=== PATIENT | female | born 1990 | race Caucasian/White ===

== ENCOUNTER 2023-02-18 16:02 | Outpatient (AMB) | payer OTHER, SELFPAY ==
[2023-02-18 16:19] VITALS: BP 132/82; PULSE 68; TEMP 37.1; O2SAT 96
--- NOTE | 2023-02-18 16:19 | MHC.OFFWIV ---
Intake Vital Signs 02/18/23 16:19 Height 5 ft 3 in BP 132/82 Blood Pressure Location Rt brachial Position Sitting Pulse 68 Pulse Source Pulse Oximeter Temp 98.7 F Temp Source Oral Pulse Oximetry (%) 96 Oxygen Delivery Method Room Air Intake Visit Reasons: EP Lump LT side neck/Rash Intake Note: Pt is here today for lump on Lt side of neck, also has a rash on chest. Pt states that chest itches and it goes up to ears ad back of neck. Patient Tobacco Use Status: Never used Tobacco Allergies No Known Allergies Allergy (Verified 02/19/23 05:57) Medication List - Last Reconciled 02/19/23 by Best Guerrier MD prednisone 40 mg (2 x 20 mg) PO DAILY Do you need a note to return to daycare/school/sports/work: No HPI EP Lump LT side neck/Rash HPI Details He 32-year-old female presents to the office for a sick visit. Patient reports that she is having a rash just about her breasts for the past week he she was out in the beach 2 weeks ago. She describes the rash is very itchy. She is also complaining of itchiness behind the years and back of the neck. In addition she has noticed a swelling on the left side of the neck and is requesting evaluation. No weight loss. She recently had discomfort in the mouth area which is now resolved. [facility] Social History Housing: House Patient Tobacco Use Status: Never used Tobacco e-Cigarette/Vaping Use: Never Used Second Hand Smoke Exposure: No service: No Current occupational status: employed Current occupation: [employer] Current occupational exposures/hazards: Yes Cognitive needs: No Hearing needs: No Vision needs: No Physical Exam Vital Signs: Last Vital Signs Temp 98.7 F 02/18/23 16:19 Pulse 68 02/18/23 16:19 BP 132/82 02/18/23 16:19 Pulse Ox 96 02/18/23 16:19 Oxygen Delivery Method Room Air 02/18/23 16:19 Const General: cooperative and healthy appearing Nutritional Appearance: well nourished Orientation/consciousness: patient oriented x3 Limitations: no limitations HEENT Head: Yes normal to inspection Eyes General: appearance normal, both eyes and all related structures Neck Other: Solitary lymph node palpable posterior to the left sternocleidomastoid in the middle of the muscle region. Lymph node is nontender. Neck: Yes normal visual inspection Chest Chest palpation & inspection: normal palpation of entire chest wall Resp Effort & Inspection: normal respiratory effort Skin Other: Examination of the chest done in the presence of a female medical psychotherapist. Wheals, erythematous area over the chest with fine erythematous area in the back of the ears. No vesicles or pustules. Neuro General: patient oriented x3 Assessment & Plan Assessment & Plan (1) Rash: Code(s): R21 - Rash and other nonspecific skin eruption Plan: Most likely a heat rash. Trial of prednisone. If symptoms do not improve to follow-up here. (2) Cervical adenopathy: Code(s): R59.0 - Localized enlarged lymph nodes Plan: Single solitary lymph node palpable. Close follow-up is necessary. If lymph node does not decrease in size in a week or so, patient was advised to follow-up here or with her primary care provider. Medications: New prednisone 40 mg (2 x 20 mg) PO DAILY 6 tabs 0RF Coding Level of Care Code Est Pt Level 4 (58295) Diagnoses Rash R21 Cervical adenopathy R59.0
== END 2023-02-18 17:02 | disposition home or self-care (01) ==
PROVIDERS: PCP Nurse Practitioner Family; Visit Provider Internal Medicine
DX: R21 Rash and other nonspecific skin eruption (principal); R59.0 Localized enlarged lymph nodes
CPT/HCPCS: 99214

== ENCOUNTER 2023-02-25 09:28 | Outpatient (AMB) | payer OTHER, SELFPAY ==
--- NOTE | 2023-02-25 11:25 | AM.OFFWIN_ITS ---
Intake Vital Signs 02/25/23 11:27 Height 5 ft 3 in Weight 173 lb BMI 30.6 BP 130/70 Blood Pressure Location Rt brachial Position Sitting Pulse 98 Pulse Source Pulse Oximeter Temp 97 F Temp Source Temporal Artery Scan Pulse Oximetry (%) 100 Oxygen Delivery Method Room Air Intake Visit Reasons: EP weak joints, rash on chest [phone] Intake Note: Pt is here c/o rash on her chest. Pt states she was seen in the walk in and prescribed prednisone and is now experiencing weak joints and body aches. Patient Tobacco Use Status: Never used Tobacco Allergies No Known Allergies Allergy (Verified 02/26/23 05:40) Medication List - Last Reconciled 02/26/23 by Best Guerrier MD No Known Home Meds Do you need a note to return to daycare/school/sports/work: No HPI EP weak joints, rash on chest [phone] HPI Details 32-year-old female presents to the office for a sick visit. Patient was seen last week for a rash. She reports that the prednisone has not helped her. In addition she believes she could have injured her right wrist at work while trying to close a door. She is also complaining of pain in the left wrist and over the ankles. Also complaining of generalized aches and fatigue. [facility] Social History Housing: House Patient Tobacco Use Status: Never used Tobacco e-Cigarette/Vaping Use: Never Used Second Hand Smoke Exposure: No service: No Current occupational status: employed Current occupation: [employer] Current occupational exposures/hazards: Yes Cognitive needs: No Hearing needs: No Vision needs: No Physical Exam Vital Signs: Last Vital Signs Temp 97 F 02/25/23 11:27 Pulse 98 02/25/23 11:27 BP 130/70 02/25/23 11:27 Pulse Ox 100 02/25/23 11:27 Oxygen Delivery Method Room Air 02/25/23 11:27 BMI result Body Mass Index 30.6 Skin Other: Erythematous area over the chest, wheals present. Extrem Other: Right wrist: Minimal tenderness on flexing the wrist. Full extension. Full range of motion. Assessment & Plan Assessment & Plan (1) Contusion of right wrist: Code(s): S60.211A - Contusion of right wrist, initial encounter Plan: X-ray of the chest was personally reviewed by me. No fractures seen. Patient was reassured. (2) Wrist pain: Code(s): M25.539 - Pain in unspecified wrist (3) Rash: Code(s): R21 - Rash and other nonspecific skin eruption Plan: Blood work has been ordered. Will call with results of blood work. Patient has an appointment with her primary care for the next day. I encouraged her to keep the appointment. Orders: Orders XR wrist RT min 3V 02/25/23 S60.211A - Contusion of right wrist, initial encounter Basic Metabolic Panel 02/25/23 M25.539 - Pain in unspecified wrist Liver Panel 02/25/23 M25.539 - Pain in unspecified wrist Thyroid Stimulating Hormone 02/25/23 M25.539 - Pain in unspecified wrist Complete Blood Count no Diff 02/25/23 M25.539 - Pain in unspecified wrist Erythrocyte Sedimentation Rate 02/25/23 M25.539 - Pain in unspecified wrist Coding Level of Care Code Est Pt Level 4 (16039) Diagnoses Contusion of right wrist S60.211A Wrist pain M25.539 Rash R21
[2023-02-25 11:27] VITALS: BP 130/70; PULSE 98; TEMP 36.1; O2SAT 100; BMI 30.6
== END 2023-02-25 13:55 | disposition home or self-care (01) ==
PROVIDERS: PCP Nurse Practitioner Family; Visit Provider Internal Medicine
DX: S60.211A Contusion of right wrist, initial encounter (principal); M25.539 Pain in unspecified wrist; R21 Rash and other nonspecific skin eruption
CPT/HCPCS: 99214

== ENCOUNTER 2023-02-25 11:58 | Outpatient (REF) | payer OTHER, SELFPAY ==
--- NOTE | ~2023-02-25 | XR_ITS ---
EXAMINATION: XR WRIST, RIGHT CLINICAL INFORMATION: Right wrist contusion. COMPARISON: None available. TECHNIQUE: PA, lateral, scaphoid and oblique views of the right wrist. FINDINGS: The bones and soft tissues are normal. No fracture. Alignment is anatomic with normal joint spaces. No erosions or abnormal soft tissue calcifications. XR/XR wrist RT min 3V IMPRESSION: Unremarkable right wrist.
[2023-02-25 16:13] LABS: Appearance Urine Clear; Color Urine Yellow; Glucose Urine UA Negative (Negative); Leukocyte Esterase Urine Negative (Negative); Nitrite Urine Negative (Negative); PH 6.5 (5.0-9.0); UMIC TRIGGER UACC YES; Urine Blood Moderate (2+) (Negative); Urine Ketones Negative (Negative); Urine Protein Negative (Neg-Trace)
[2023-02-25 16:14] LABS: MANUAL DIFF FLAG NO
[2023-02-25 16:15] LABS: Eosinophils Absolute Auto 0.1 X10*3/uL (0.0-0.4); Eosinophils Percent Auto 1.8 % (0-4); Hematocrit 40.6 % (37.0-47.0); Hemoglobin 13.3 g/dl (12.0-16.0); Imm Gran Abs Auto 0.01 X10*3/uL (0.00-0.03); Imm Gran Pct Auto 0.3 % (0.0-0.4); Lymphocytes Absolute Auto 0.8 X10*3/uL (1.2-4.9); Lymphocytes Percent Auto 20.2 % (20-40); Mean Corpuscular HGB Conc 32.8 g/dl (31.0-35.0); Mean Corpuscular Hemoglobin 27.8 pg (27.0-33.0); Mean Corpuscular Volume 84.9 fL (80.0-98.0); Mean Platelet Volume 12.6 fL (9.4-12.3); Monocytes Absolute Auto 0.5 X10*3/uL (0.1-1.2); Monocytes Percent Auto 12.2 % (2-11); Neutrophils Absolute Auto 2.6 x10*3/uL (2.0-8.3); Neutrophils Percent Auto 65.5 % (45-73); Platelet Count 170 X10*3/uL (160-400); Red Blood Count 4.78 X10*6/uL (4.20-5.50); Red Cell Distribution Width 13.2 % (11.0-16.0); White Blood Count 3.9 X10*3/uL (4.8-10.8)
[2023-02-25 16:30] LABS: Bacteria Urine None Seen (None Seen); Hyaline Casts Urine 0-2 /LPF (0-2); Squamous Epithelial Cell Urine 0-2 /HPF (0-2); WBC Urine 0-5 /HPF (0-5)
[2023-02-26 02:29] LABS: Alanine Aminotransferase 35 U/L (0-31); Alkaline Phosphatase 59 U/L (39-117); Anion Gap 11 (12-20); Aspartate Amino Transferase 25 U/L (5-31); Bilirubin Total 0.4 mg/dL (0.0-1.0); Blood Urea Nitrogen 10 mg/dL (9-16); Carbon Dioxide 24 mmol/L (22-29); Chloride 108 mmol/L (96-108); Cholesterol 145 mg/dL; Estimated Glomerular Filt Rate > 60; Glucose Fasting 115 mg/dL (60-99); HDL Cholesterol 36 mg/dL; LDL Cholesterol Calculated 71 mg/dl; Potassium 4.1 mmol/L (3.3-5.1); Sodium 139 mmol/L (135-145); TSH reflex Free T4 0.98 uIU/mL (0.32-4.0); Total Protein 7.3 g/dL (6.5-8.0); Triglycerides 192 mg/dL
== END 2023-02-25 11:59 | disposition home or self-care (01) ==
LOC: HO.HMGCX 11:58
PROVIDERS: PCP Nurse Practitioner Family; Visit Provider Internal Medicine
DX: S60.211A Contusion of right wrist, initial encounter (principal); Z00.00 Encounter for general adult medical examination without abnormal findings; Z13.29 Encounter for screening for other suspected endocrine disorder; Z13.220 Encounter for screening for lipoid disorders
CPT/HCPCS: 36415; 73110; 80053; 80061; 81001; 84443; 85025

== ENCOUNTER 2023-02-26 08:03 | Outpatient (AMB) | payer OTHER, SELFPAY ==
[2023-02-26 08:06] VITALS: BP 128/82; PULSE 67; O2SAT 98; BMI 31.2
--- NOTE | 2023-02-26 08:06 | A.OFFPC_ITS ---
Vital Signs 02/26/23 08:06 Height 5 ft 3 in Weight 176 lb 4 oz BMI 31.2 BP 128/82 Blood Pressure Location Lt brachial Position Sitting Pulse 67 Pulse Source Pulse Oximeter Pulse Oximetry (%) 98 Oxygen Delivery Method Room Air Intake Visit Reasons: joint pain Intake Note: pt has been having joint since Thurs in her wrist and her left knee and in her Big toes and pt injured her right wrist at work Allergies No Known Allergies Allergy (Verified 02/26/23 05:40) Medication List - Last Reconciled 02/26/23 by Ayan Toro [facility] meloxicam 15 mg PO DAILY PRN 30 days Tobacco use date assessed: 03/28/22 HPI joint pain HPI Details Pt c/o joint pain (generalized). She reports pain in her left wrist, left knee, and big toes. Pt reports that this worsened after being on prednisone. Will order labs. Denies fever, chills, and dizziness. [facility] Social History Housing: House Patient Tobacco Use Status: Never used Tobacco e-Cigarette/Vaping Use: Never Used Second Hand Smoke Exposure: No service: No Current occupational status: employed Current occupation: [employer] Current occupational exposures/hazards: Yes Cognitive needs: No Hearing needs: No Vision needs: No Questionnaire Thrive Questionnaire Date Thrive assessed: 03/28/22 JACK-7 AMB Questionnaire JACK-7 Date JACK - 7 assessed: 03/28/22 Source: Developed by Drs. Justice Diaz, Laurel Salazar, Camden Ramírez and colleagues, with an educational nino from [employer]. Review of Systems Const Reports as per HPI Physical exam (Primary Care) Vital Signs: Last Vital Signs Pulse 67 02/26/23 08:06 BP 128/82 02/26/23 08:06 Pulse Ox 98 02/26/23 08:06 Oxygen Delivery Method Room Air 02/26/23 08:06 BMI result Body Mass Index 31.2 Tobacco/Smoking Status: Tobacco use Status Tobacco use date assessed 03/28/22 02/26/23 08:12 Patient Tobacco Use Status Never used Tobacco 02/26/23 08:12 e-Cigarette/Vaping Use Never Used 02/26/23 08:12 Thrive Assessment: Date of Thrive Assessment Date Thrive assessed 03/28/22 02/26/23 08:12 Const General: cooperative Orientation/consciousness: patient oriented x3 Resp Effort & Inspection: normal respiratory effort Auscultation: clear to auscultation bilaterally Cardio Rate: regular rate Rhythm: regular rhythm Heart sounds: S1 normal heart sound present and S2 normal heart sound present Neuro General: patient oriented x3 Extrem Other: with dorsi flexion of toes tenderness noted to 1st MTP joints bilat, no erythema, no swelling, with ulnar and radial deviation and wrist flexion and extension against resistance slight dull pain to left wrist, able to flex and extend left knee without discomfort Psych Appearance: grossly normal Mental Status: mental status grossly normal Speech and movement: Normal speech and movement present Affect: normal affect Attitude: cooperative Thought process: Normal thought process present Thought content: Normal thought content present Insight: Good insight present (Psych) Judgement: Good judgement present (Psych) Assessment and Plan Assessment & Plan (1) Joint pain: Code(s): M25.50 - Pain in unspecified joint Plan: Labs ordered Plan The patient agreed to the use of a medical imaging technician for this encounter. Scribed for TAMI Delgado by Talia Romero medical imaging technician, on 02/26/2023 at 08:35 EST. Orders: Orders Cyclic Citrullinated Peptide Today M25.50 - Pain in unspecified joint C Reactive Protein Today M25.50 - Pain in unspecified joint Rheumatoid Factor Today M25.50 - Pain in unspecified joint Complete Blood Count Auto Diff Today M25.50 - Pain in unspecified joint Erythrocyte Sedimentation Rate Today M25.50 - Pain in unspecified joint ROGERS Reflex Titer and Pattern Today M25.50 - Pain in unspecified joint DNA Double Stranded-Crithidia Today M25.50 - Pain in unspecified joint Sjogren's Antibodies Today M25.50 - Pain in unspecified joint Tick-borne Disease Molecular Today M25.50 - Pain in unspecified joint Uric Acid Today M25.50 - Pain in unspecified joint Medications: New meloxicam 15 mg PO DAILY PRN 30 tabs 0RF pain 30 days Coding Level of Care Code Est Pt Level 3 (15833) Diagnoses Joint pain M25.50
== END 2023-02-26 10:38 | disposition home or self-care (01) ==
PROVIDERS: PCP Nurse Practitioner Family; Visit Provider Nurse Practitioner Family
DX: M25.561 Pain in right knee (principal); M79.671 Pain in right foot; M79.672 Pain in left foot
CPT/HCPCS: 99213

== ENCOUNTER 2023-02-26 08:25 | Outpatient (AMB) | payer OTHER, SELFPAY ==
--- NOTE | 2023-02-26 08:25 | A.OFFPC_ITS ---
Intake Visit Reasons: WC RT Wrist Allergies No Known Allergies Allergy (Verified 02/26/23 05:40) Tobacco use date assessed: 03/28/22 HPI WC RT Wrist HPI Details WC: Pt c/o ongoing right wrist pain. She was going to open a door at work on 02/22 and hyperextended her wrist after another individual on the other side of the door opened the door fairly quickly. Pt used her hand to block the door swinging at her. Pt was seen in the walk-in for this yesterday and had an xr which was negative. Most likely a severe sprain. Recommended wearing a wrist brace during the day. Will keep pt out of work until Saturday 03/10. SHe kows to contact me with further questions or concerns. [facility] Social History Housing: House Patient Tobacco Use Status: Never used Tobacco e-Cigarette/Vaping Use: Never Used Second Hand Smoke Exposure: No service: No Current occupational status: employed Current occupation: [employer] Current occupational exposures/hazards: Yes Cognitive needs: No Hearing needs: No Vision needs: No Questionnaire Thrive Questionnaire Date Thrive assessed: 03/28/22 JACK-7 AMB Questionnaire JACK-7 Date JACK - 7 assessed: 03/28/22 Source: Developed by Drs. Justice Diaz, Laurel Salazar, Camden Ramírez and colleagues, with an educational nino from [employer]. Review of Systems Const Reports as per HPI Physical exam (Primary Care) Tobacco/Smoking Status: Tobacco use Status Tobacco use date assessed 03/28/22 02/26/23 08:30 Patient Tobacco Use Status Never used Tobacco 02/26/23 08:30 e-Cigarette/Vaping Use Never Used 02/26/23 08:30 Thrive Assessment: Date of Thrive Assessment Date Thrive assessed 03/28/22 02/26/23 08:30 Const General: cooperative Orientation/consciousness: patient oriented x3 Neuro General: patient oriented x3 Extrem Other: right wrist: tenderness noted with ulnar and radial deviation, able to extend wrist against resistance with discomfort, more discomfort with wrist flexion against resistance, no active swelling Psych Appearance: grossly normal Mental Status: mental status grossly normal Speech and movement: Normal speech and movement present Affect: normal affect Attitude: cooperative Thought process: Normal thought process present Thought content: Normal thought content present Insight: Good insight present (Psych) Judgement: Good judgement present (Psych) Assessment and Plan Assessment & Plan (1) Wrist pain: Comment: right wrist pain, instructed on wearing a brace throughout the day. Code(s): M25.539 - Pain in unspecified wrist Plan The patient agreed to the use of a vice president medical affairs for this encounter. Scribed for FELIZ Delgado-SHAWN by Talia Romero vice president medical affairs, on 02/26/2023 at 08:20 EST. Coding Level of Care Code Est Pt Level 3 (60177) Diagnoses Wrist pain M25.539
== END 2023-02-26 10:40 | disposition home or self-care (01) ==
PROVIDERS: PCP Nurse Practitioner Family; Visit Provider Nurse Practitioner Family
DX: M25.531 Pain in right wrist (principal); X50.3XXA Overexertion from repetitive movements, initial encounter
CPT/HCPCS: 99213

== ENCOUNTER 2023-02-26 08:57 | Outpatient (REF) | payer OTHER, SELFPAY ==
[2023-02-26 11:23] LABS: Basophils Percent Auto 0.3 % (0-2); Eosinophils Percent Auto 1.3 % (0-4); Hematocrit 42.9 % (37.0-47.0); Hemoglobin 13.8 g/dl (12.0-16.0); Imm Gran Abs Auto 0.02 X10*3/uL (0.00-0.03); Imm Gran Pct Auto 0.7 % (0.0-0.4); Lymphocytes Absolute Auto 0.9 X10*3/uL (1.2-4.9); Lymphocytes Percent Auto 29.5 % (20-40); MANUAL DIFF FLAG NO; Mean Corpuscular HGB Conc 32.2 g/dl (31.0-35.0); Mean Corpuscular Hemoglobin 27.5 pg (27.0-33.0); Mean Corpuscular Volume 85.5 fL (80.0-98.0); Mean Platelet Volume 12.6 fL (9.4-12.3); Monocytes Absolute Auto 0.4 X10*3/uL (0.1-1.2); Monocytes Percent Auto 14.8 % (2-11); Neutrophils Absolute Auto 1.6 x10*3/uL (2.0-8.3); Neutrophils Percent Auto 53.4 % (45-73); Platelet Count 181 X10*3/uL (160-400); Red Blood Count 5.02 X10*6/uL (4.20-5.50); Red Cell Distribution Width 13.2 % (11.0-16.0)
[2023-02-26 12:08] LABS: Erythrocyte Sedimentation Rate 5 MM/HR (0-20)
[2023-02-26 12:09] LABS: C Reactive Protein 0.37 mg/dL (< or = 0.50); Uric Acid 4.3 mg/dL (2.4-5.7)
[2023-02-26 14:00] LABS: Rheumatoid Factor < 13.0 IU/mL (<15.0)
[2023-02-27 14:34] LABS: Cyclic Citrullinated Peptide <16 UNITS
[2023-02-27 20:34] LABS: Antibody to SS-A Antigen <1.0 NEG AI (<1.0 NEG); Antibody to SS-B Antigen <1.0 NEG AI (<1.0 NEG)
[2023-02-28 06:13] LABS: A. Phagocytphilium DNA,RT-PCR NOT DETECTED (NOT DETECTED); Babesia Microti DNA, RT-PCR NOT DETECTED (NOT DETECTED); Borrelia Miyamotoi,DNA RT-PCR NOT DETECTED (NOT DETECTED); E.Chaffeensis DNA RT-PCR NOT DETECTED (NOT DETECTED); Lyme(Borrelia ssp)DNA RT-PCR NOT DETECTED (NOT DETECTED)
[2023-03-01 13:29] LABS: Anti Nuclear Antibody Screen NEGATIVE (NEGATIVE)
[2023-03-03 14:38] LABS: DNAds, Crithidia Antibody Negative (Negative)
== END 2023-02-26 08:58 | disposition home or self-care (01) ==
LOC: HO.HMGCLDS 08:57
PROVIDERS: PCP Nurse Practitioner Family; Visit Provider Nurse Practitioner Family
DX: M25.50 Pain in unspecified joint (principal)
CPT/HCPCS: 36415; 84550; 85025; 85652; 86038; 86140; 86200; 86235; 86255; 86431; 87798; 87801

== ENCOUNTER 2023-04-25 11:16 | Outpatient (AMB) | payer OTHER, SELFPAY ==
[2023-04-25 11:20] VITALS: BP 126/84; PULSE 91; O2SAT 96; BMI 30.7
--- NOTE | 2023-04-25 11:20 | A.OFFPC_ITS ---
Vital Signs 04/25/23 11:20 Height 5 ft 3 in Weight 173 lb 4 oz BMI 30.7 BP 126/84 Blood Pressure Location Lt brachial Position Sitting Pulse 91 Pulse Source Pulse Oximeter Pulse Oximetry (%) 96 Oxygen Delivery Method Room Air Intake Visit Reasons: Annual PE Allergies No Known Allergies Allergy (Verified 04/25/23 11:31) Tobacco use date assessed: 04/25/23 Dental Screening Dental Screen Date: 04/25/23 Did you have a dental visit in the last 12 months?: Yes Did you have a dental problem in the last 6 months where you did not have access to dental care?: No Was dental information given to patient?: Patient has dentist HPI Annual PE HPI Details Pt is here for a PE. Labs have already been ordered. 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 Pt is following up with [place] [facility] due to an ongoing dermatitis of her bilat hands. She is seeing rheumatology as well. Pt c/o cough, post-nasal drip, and hoarse voice x 2 weeks. Will swab for COVID/flu/RSV. Denies fever, chills, and sore throat. [facility] Social History Housing: House Patient Tobacco Use Status: Never used Tobacco e-Cigarette/Vaping Use: Never Used Second Hand Smoke Exposure: No service: No Current occupational status: employed Current occupation: [employer] Current occupational exposures/hazards: Yes Cognitive needs: No Hearing needs: No Vision needs: No Questionnaire Thrive Questionnaire Date Thrive assessed: 03/28/22 JACK-7 AMB Questionnaire JACK-7 Date JACK - 7 assessed: 03/28/22 Source: Developed by Drs. Justice Diaz, Laurel Salazar, Camden Ramírez and colleagues, with an educational nino from [employer]. Review of Systems Const Denies chills and Denies fever(s) Eyes Denies blurry vision ENT Denies vertigo, Denies dizziness and Denies sore throat Card Denies chest pain at rest, Denies chest pain with activity, Denies diaphoresis, Denies dyspnea and Denies dyspnea on exertion Resp Reports cough, Denies dyspnea, Denies dyspnea on exertion and Denies wheezing GI Denies abdominal pain, Denies melena, Denies hematochezia, Denies constipation, Denies diarrhea and Denies loose stools Denies hematuria Musc Denies numbness and Denies tingling Skin/Breast Denies lesions Neuro Denies vertigo, Denies dizziness, Denies numbness and Denies tingling Psych Denies anxiety, Denies depression, Denies homicidal ideation, Denies suicidal ideation and Denies other (substance abuse) Aller/Immun Denies wheezing Physical exam (Primary Care) Vital Signs: Last Vital Signs Pulse 91 04/25/23 11:20 BP 126/84 04/25/23 11:20 Pulse Ox 96 04/25/23 11:20 Oxygen Delivery Method Room Air 04/25/23 11:20 BMI result Body Mass Index 30.7 Tobacco/Smoking Status: Tobacco use Status Tobacco use date assessed 04/25/23 04/25/23 11:33 Patient Tobacco Use Status Never used Tobacco 04/25/23 11:27 e-Cigarette/Vaping Use Never Used 04/25/23 11:27 Thrive Assessment: Date of Thrive Assessment Date Thrive assessed 03/28/22 04/25/23 11:27 Const General: cooperative Nutritional Appearance: well nourished Orientation/consciousness: patient oriented x3 HENMT Head: Yes normal to inspection, Yes normocephalic and Yes atraumatic Ears: TM's normal bilaterally Eyes General: appearance normal, both eyes and all related structures Alignment and Position: alignment normal and position normal Neck Neck: Yes normal visual inspection and Yes no lymphadenopathy Thyroid: Thyroid normal Resp Other: hoarse voice Effort & Inspection: normal respiratory effort Auscultation: clear to auscultation bilaterally Cardio Rate: regular rate Rhythm: regular rhythm Heart sounds: S1 normal heart sound present, S2 normal heart sound present and no murmurs GI Palpation (GI): Soft to palpation and nontender Auscultation: normal bowel sounds Skin Other: bilat hands palmar aspect along creases with open lesions/ulcerations. No s/s of infection Neuro General: patient oriented x3, moves all extremities, no focal motor deficits and deep tendon reflexes 2+ bilaterally Romberg Test: Negative Psych Appearance: grossly normal Mental Status: mental status grossly normal Speech and movement: Normal speech and movement present Affect: normal affect Attitude: cooperative Thought process: Normal thought process present Thought content: Normal thought content present Insight: Good insight present (Psych) Judgement: Good judgement present (Psych) Assessment and Plan Assessment & Plan (1) Viral illness: Code(s): B34.9 - Viral infection, unspecified (2) Dermatitis: Code(s): L30.9 - Dermatitis, unspecified (3) Physical exam: Code(s): Z00.00 - Encounter for general adult medical examination without abnormal findings Plan The patient agreed to the use of a medical collections representative for this encounter. Scribed for TAMI Delgado by Talia Romero medical collections representative, on 04/25/2023 at 11:50 EST Orders: Orders SARS-CoV2/FLU/RSV Today B34.9 - Viral infection, unspecified Coding Level of Care Code Est Pt Prev Care 18-39y(14843) Diagnoses Viral illness B34.9 Dermatitis L30.9 Physical exam Z00.00
== END 2023-04-25 12:12 | disposition home or self-care (01) ==
PROVIDERS: PCP Nurse Practitioner Family; Visit Provider Nurse Practitioner Family
DX: B34.9 Viral infection, unspecified (principal); L30.9 Dermatitis, unspecified; Z00.00 Encounter for general adult medical examination without abnormal findings
CPT/HCPCS: 99395

== ENCOUNTER 2023-04-25 13:40 | Outpatient (REF) | payer OTHER, SELFPAY ==
[2023-04-25 14:24] LABS: Influenza A PCR NEGATIVE (Negative); Influenza B PCR NEGATIVE (Negative); Resp Syncy Virus RNA Qual PCR NEGATIVE (Negative); SARS COV2 PCR INHOUSE NEGATIVE (Negative)
== END 2023-04-25 13:41 | disposition home or self-care (01) ==
LOC: HO.HMGCLNP 13:40
PROVIDERS: Visit Provider Nurse Practitioner Family
DX: Z20.822 Contact with and (suspected) exposure to COVID-19 (principal)
CPT/HCPCS: 0241U

== ENCOUNTER 2023-06-25 08:55 | Outpatient (REF) | payer OTHER, SELFPAY ==
--- NOTE | ~2023-06-25 | US_ITS ---
EXAMINATION: MM DIAGNOSTIC DIGITAL BREAST TOMOSYNTHESIS, BILATERAL US BREAST LIMITED, RIGHT MAMMOGRAPHY: CLINICAL INFORMATION: Mass right breast upper outer quadrant, noted on CT scan of the chest 05/01/2023 at [facility], 32-year-old female COMPARISON: Mammography: None. Baseline exam. TECHNIQUE: Digital breast tomosynthesis is performed in both the craniocaudal and mediolateral oblique views along with computer-aided detection (CAD). Synthesized 2D images are generated from the tomosynthesis. FINDINGS: There are scattered areas of fibroglandular density (ACR BI-RADS breast composition Category b). The upper outer quadrant of the right breast, there is a 2.8 x 3.5 cm isodense circumscribed mass, which will be evaluated by ultrasound. There are no additional masses, suspicious calcifications, or areas of architectural distortion in either breast. No abnormal adenopathy or skin changes. Nipple barbell in right nipple. ULTRASOUND: CLINICAL INFORMATION: Mass right breast upper outer quadrant, 32-year-old female COMPARISON: None TECHNIQUE: Targeted sonographic evaluation was performed using a high frequency linear transducer. Attention was given to the upper outer quadrant right breast. Selected archived documentation. FINDINGS: RIGHT BREAST: In the 10:00 axis of the right breast, a CM from the nipple, there is an oval circumscribed mass, hypoechoic, measuring 3.0 x 1.1 x 2.7 cm. This demonstrates minimal good through transmission, no significant internal color Doppler flow, does demonstrate a pseudocapsule, and given the appearance and overall presentation is most likely a fibroadenoma or variant. Ultrasound-guided biopsy recommended to fully characterize. US/US breast RT limited mamm only IMPRESSION: In the upper outer quadrant of the right breast at 10:00 axis, there is a 3 cm mass which is most likely a fibroadenoma or variant. Recommend ultrasound-guided biopsy of this finding to further characterize. There are no suspicious findings in the left breast. Findings and recommendations were discussed with the patient in detail. OVERALL ASSESSMENT: Mammography: BI-RADS 4 - Suspicious finding Ultrasound: BI-RADS 4 - Suspicious finding RECOMMENDATION: Biopsy recommended This patient's information was entered into a reminder system with a target due date for their next mammogram.
== END 2023-06-25 08:56 | disposition home or self-care (01) ==
LOC: HO.MAMMO 08:55
PROVIDERS: PCP Nurse Practitioner Family; Visit Provider Nurse Practitioner Family
DX: N63.11 Unspecified lump in the right breast, upper outer quadrant (principal)
CPT/HCPCS: 76642; 77062; 77066

== ENCOUNTER → 2023-06-25 09:30 | Outpatient (BNV) | payer OTHER, SELFPAY | PROVIDERS: PCP Nurse Practitioner Family; Visit Provider Radiology Diagnostic Radiology | DX: N63.11 Unspecified lump in the right breast, upper outer quadrant (principal) | CPT/HCPCS: 76642; 77062; 77066 ==

== ENCOUNTER 2023-07-02 08:33 | Outpatient (AMB) | payer OTHER, SELFPAY ==
--- NOTE | 2023-07-02 08:36 | MHC.OFFVIS ---
Intake Vital Signs 07/02/23 08:47 Height 5 ft 3 in Weight 173 lb BMI 30.6 BP 151/102 H Blood Pressure Location Rt brachial Position Sitting Pulse 116 H Intake Visit Reasons: U/S guided bx right breast -10 o'clock density Intake Note: Patient for US guided Rt breast bx. Recent mammo and Rt breast US on 06-25-23. 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 Accompanied by: Self / Same As Patient Allergies No Known Allergies Allergy (Verified 07/02/23 08:49) Medication List - Last Reconciled 07/02/23 by Almas Bailey MD amlodipine 5 mg PO DAILY calcium carbonate-vitamin D3 600 mg-20 mcg (800 unit) (Caltrate 600 plus D) 1 tab PO DAILY leflunomide 20 mg PO DAILY mycophenolate mofetil (CellCept) 500 mg PO BID mycophenolate mofetil 1,000 mg PO BID prednisone 40 mg PO DAILY HPI HPI Comments History of Present Illness Details Patient presents here status post recent CT scan followed by right mammographic and ultrasound studies of a right upper outer quadrant breast mass. This was an incidental finding on a CT scan of the chest for other reasons. Patient self has no breast issues or complaints. She does not do regular breast exams. She denies any pain, discharge, skin changes, or any other breast symptoms bilaterally. Chart was reviewed patient evaluated. Patient is currently being worked up for connective tissue disorder. [facility] Medical History (Updated 07/02/23 @ 09:15 by Almas Bailey MD) section wound complication Connective tissue disease Surgical History (Updated 07/02/23 @ 09:17 by Almas Bailey MD) Breast mass, right Family History (Updated 07/02/23 @ 08:46 by CHANDU Ritter) Maternal Grandmother Breast CA Social History (Updated 07/02/23 @ 08:47 by CHANDU Ritter) Housing: House Alcohol intake: current Alcohol intake frequency: holidays/special occasions only Alcohol type: wine Patient Tobacco Use Status: Never used Tobacco e-Cigarette/Vaping Use: Never Used Second Hand Smoke Exposure: No service: No Current occupational status: employed Current occupation: [employer] Current occupational exposures/hazards: Yes Cognitive needs: No Hearing needs: No Vision needs: No Physical Exam Vital Signs: Last Vital Signs Pulse 116 H 07/02/23 08:47 BP 151/102 H 07/02/23 08:47 BMI result Body Mass Index 30.6 Chest Other: Breath sounds bilaterally, bilateral breast exam demonstrates no obvious mass, discharge, skin changes. No cervical periclavicular or axillary adenopathy bilaterally. Assessment & Plan Assessment & Plan (1) Breast mass, right: Comment: Patient is scheduled for ultrasound-guided biopsy today. She was seen in the proximal weeks time for follow-up. All questions answered. Further interventions and studies will be directed by the results of the above-mentioned procedure. Code(s): N63.10 - Unspecified lump in the right breast, unspecified quadrant Plan: See above Orders: Orders US breast ndl core biopsy RT Today N63.10 - Unspecified lump in the right breast, unspecified quadrant Coding Level of Care Code New Pt Level 4 (88348) Diagnoses Breast mass, right N63.10
[2023-07-02 08:47] VITALS: BP 151/102; PULSE 116; BMI 30.6
== END 2023-07-02 09:09 | disposition home or self-care (01) ==
PROVIDERS: PCP Nurse Practitioner Family; Visit Provider Surgery
DX: N63.10 Unspecified lump in the right breast, unspecified quadrant (principal)
CPT/HCPCS: 99204

== ENCOUNTER 2023-07-02 09:42 | Outpatient (REF) | payer OTHER, SELFPAY ==
--- NOTE | ~2023-07-02 | MM_ITS ---
PROCEDURE: US GUIDED BREAST BIOPSY, RIGHT CLINICAL INFORMATION: Mass upper outer quadrant right breast for biopsy. Initially palpable with 06/25/2023. COMPARISON: 06/25/2023 PROCEDURAL DETAILS: The details of the procedure, as well as the risks, benefits, and alternatives to the procedure were explained to the patient in detail and all of her questions were answered, after which written informed consent was obtained. Site and side were confirmed. Prior to the procedure, sonography revealed an oval, hypoechoic, slightly mixed echogenicity circumscribed mass in the right breast at 10:00, 8 cm from the nipple, measuring 3.0 x 1.1 x 2.7 cm. A time-out was performed, the lesion intended for biopsy was targeted, and the skin of the right breast was then prepped and draped in the usual sterile fashion. Using sonographic guidance, sterile technique, and 1% lidocaine without epinephrine for local anesthesia, multiple core biopsies were obtained through the targeted area with a 14G spring loaded X2 Biosystemsera core biopsy device. There was real-time confirmation of appropriate needle passage. Sampling was documented. At the completion of tissue sampling, a single butterfly metallic clip was deposited at the biopsy site. There was no evidence of immediate complication. SPECIMEN: 3 good core samples were taken. DIGITAL POST-PROCEDURE MAMMOGRAPHY: Breast density: The tissue contains scattered areas of fibroglandular density. BI-RADS version 5, category B. The postprocedure 2-view direct digital mammogram reveals satisfactory and accurate positioning of the biopsy clip. The patient tolerated the procedure well and, after assuring adequate hemostasis, was discharged in good condition after reviewing postbiopsy breast care instructions. Final pathology results are pending. MM/MM tomosynthesis diagnostic RT IMPRESSION: 1. No immediate complication from ultrasound-guided percutaneous biopsy right mass at the 10:00 axis. 2. Ultrasound was used to localize and guide marker clip placement. 3. The 2-view direct digital postprocedure mammogram reveals satisfactory and accurate positioning of the biopsy clip. 4. Final pathology results are pending. A separate report with final recommendations will be issued once these results are made available.
[2023-07-02] MEDS: Sodium Bicarbonate 8.4% 50 MEQ/50 ML VIAL SUBCUT (10:56)
[2023-07-02] MEDS: Lidocaine HCl 1 % 20 ML VIAL 9 ML SUBCUT (10:57)
== END 2023-07-02 09:43 | disposition home or self-care (01) ==
LOC: HO.MAMMO 09:42
PROVIDERS: PCP Nurse Practitioner Family; Visit Provider Surgery
DX: N63.11 Unspecified lump in the right breast, upper outer quadrant (principal)
CPT/HCPCS: 19083; 77061; 77065; 88305; C1894

== ENCOUNTER → 2023-07-02 10:00 | Outpatient (BNV) | payer OTHER, SELFPAY | PROVIDERS: PCP Nurse Practitioner Family; Visit Provider Radiology Diagnostic Radiology | DX: N63.11 Unspecified lump in the right breast, upper outer quadrant (principal) | CPT/HCPCS: 19083; 77065 ==

== ENCOUNTER 2023-07-12 09:04 | Outpatient (AMB) | payer OTHER, SELFPAY ==
[2023-07-12 09:12] VITALS: BP 131/90; PULSE 82; BMI 30.6
--- NOTE | 2023-07-12 09:12 | A.OFFVIS_ITS ---
Intake Vital Signs 07/12/23 09:12 Height 5 ft 3 in Weight 173 lb BMI 30.6 BP 131/90 H Blood Pressure Location Rt brachial Position Sitting Pulse 82 Intake Visit Reasons: Follow Up U/S guided bx right breast Intake Note: Patient here to follow up U/S guided bx on Rt breast on 07/02/23. Patient c/o: No concerns. Biopsy site healing well. 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 Patient has no wound issues or complaints. Pathology is benign. [facility] Medical History section wound complication Connective tissue disease Surgical History Breast mass, right Family History Maternal Grandmother Breast [place] Social History Housing: House Alcohol intake: current Alcohol intake frequency: holidays/special occasions only Alcohol type: wine Patient Tobacco Use Status: Never used Tobacco e-Cigarette/Vaping Use: Never Used Second Hand Smoke Exposure: No service: No Current occupational status: employed Current occupation: [employer] Current occupational exposures/hazards: Yes Cognitive needs: No Hearing needs: No Vision needs: No Physical Exam Vital Signs: Last Vital Signs Pulse 82 07/12/23 09:12 BP 131/90 H 07/12/23 09:12 BMI result Body Mass Index 30.6 Chest Other: Biopsy site clean dry and intact healing uneventfully. Assessment & Plan Assessment & Plan (1) Breast mass, right: Comment: Patient is scheduled for ultrasound-guided biopsy today. She was seen in the proximal weeks time for follow-up. All questions answered. Further interventions and studies will be directed by the results of the above-mentioned procedure. Code(s): N63.10 - Unspecified lump in the right breast, unspecified quadrant Plan Patient has been given local instructions, encouraged self-breast scans, and will see me in 6 months time for routine surveillance or p.r.n.. All questions answered. Coding Level of Care Code Est Pt Level 4 (33159) Diagnoses Breast mass, right N63.10
== END 2023-07-12 09:16 | disposition home or self-care (01) ==
PROVIDERS: PCP Nurse Practitioner Family; Visit Provider Surgery
DX: N63.10 Unspecified lump in the right breast, unspecified quadrant (principal)
CPT/HCPCS: 99214

== ENCOUNTER → 2023-07-12 09:04 | Outpatient (BNVA) | payer OTHER, SELFPAY | PROVIDERS: PCP Nurse Practitioner Family; Visit Provider Surgery ==

== ENCOUNTER 2024-11-09 13:47 | Outpatient (AMB) | payer OTHER, SELFPAY ==
--- NOTE | 2024-11-09 14:07 | A.OFFPC_ITS ---
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 Accompanied by: Self / Same As Patient Allergies No Known Allergies Allergy (Verified 11/09/24 15:37) Medication List - Last Reconciled 11/09/24 by NAHUM DemarcoP- amlodipine 5 mg PO DAILY calcium carbonate-vitamin D3 600 mg-20 mcg (800 unit) (Caltrate plus D) 1 tab PO DAILY mycophenolate mofetil (CellCept) 750 mg PO BID tofacitinib (Xeljanz) 10 mg PO BID Tobacco use date assessed: 11/09/24 Dental Screening Dental Screen Date: 11/09/24 Did you have a dental visit in the last 12 months?: Yes Did you have a dental problem in the last 6 months where you did not have access to dental care?: No Was dental information given to patient?: Patient has dentist HPI HPI Comments History of Present Illness Details History of Present Illness The patient is a 34-year-old female presenting with a focus on a physical exam. She has a history of dermatomyositis and interstitial lung disease, for which she receives IVIG therapy. Her condition is currently stable, and she reports doing well. She follows up regularly with both pulmonary and rheumatology specialists. Symptoms of Raynaud's phenomenon are noted but reportedly mild, allowing her to remain physically active. She is also under regular gynecological care, with recent labs ordered. Health Maintenance - Continues regular follow-up with pulmo nary and rheumatology specialists. - Lab work recently ordered; encouraged to follow-up with specialists as instructed. Social History - Reports being physically active. Review of Systems - General: Reports doing well. - Musculoskeletal: Reports dermatomyosit is. - Respiratory: Follows-up regularly with a pulmonary team due to interstitial lung disease. - Vascular: Reports mild symptoms of Ray naud's Phenomenon. Physical Exam General: Cooperative, healthy appearing, comfortable, no acute distress and well developed Orientation: Patient oriented x3 Limitations: No limitations Head: Normal to inspection Ears: Hearing grossly normal bilaterally Nose: Normal external nose present Face and sinus: Normal facial exam Eyes: Appearance normal, both eyes and all related structures Neck: Normal visual inspection and Yes full ROM Respiratory: Normal respiratory effort and able to speak in complete sentences. Clear to auscultation bilaterally Cardiovascular: Regular rate and rhythm. Normal S1 and S2 GI: Normal to inspection. Soft to palpation and nontender Skin: No rashes or lesions noted Neuro: Patient oriented x3 Extremities: Normal to inspection Results Plan During this visit, I conducted a comprehensive review of the patient?s ongoing management plan. She will maintain her regular specialist appointments for dermatomyositis and interstitial lung disease, including continuation of IVIG therapy. Mild Raynaud's phenomenon symptoms will be monitored, with an emphasis on preserving physical activity levels. Coordination with her pulmonology and rheumatology teams will continue, including retrieval of rheumatology notes. I emphasized the importance of her scheduled lab work to aid in ongoing assessment and management. Discussion Notes I discussed the current management strategies with the patient, highlighting the importance of adhering to her scheduled specialist appointments. We reviewed the benefits and necessity of continued IVIG therapy for control of dermatomyositis. Regarding Raynaud?s phenomenon, the patient is aware of its mild presentation, and I have advised her to continue monitoring symptoms while maintaining activity. Any updates on her lab work and specialist notes will be closely coordinated. The patient understands and agrees with the treatment and monitoring plan. Patient Instructions - Continue appointments with pulmonary a nd rheumatology specialists. - Follow-up with [facility] care as scheduled. - Maintain physical activity as tolerate d. - Report any new or worsening symptoms. - Complete any lab work as directed by adrianna cardozo. -echo will be ordered due to dermatomyso tis [facility] Medical History (Updated 11/09/24 @ 15:39 by TAMI Demarco) Dermatomycosis Interstitial lung disease Mild obstruction of pulmonary airflow Right Achilles tendinitis section wound complication Connective tissue disease Surgical History Breast mass, right Family History Maternal Grandmother Breast [place] Social History Housing: House Alcohol intake: current Alcohol intake frequency: holidays/special occasions only Alcohol type: wine Patient Tobacco Use Status: Never used Tobacco e-Cigarette/Vaping Use: Never Used Second Hand Smoke Exposure: No service: No Current occupational status: employed Current occupation: [employer] Current occupational exposures/hazards: Yes Cognitive needs: No Hearing needs: No Vision needs: No Questionnaire PHQ-9 Over the last 2 weeks, how often have you been bothered by any of the following problems? 1. Little interest or pleasure in doing things: several days 2. Feeling down, depressed, or hopeless: not at all 3. Trouble falling or staying asleep, or sleeping too much: not at all 4. Feeling tired or having little energy: several days 5. Poor appetite or overeating: not at all 6. Feeling bad about yourself - or that you are a failure or have let yourself or your family down: not at all 7. Trouble concentrating on things, such as reading the newspaper or watching television: several days 8. Moving or speaking so slowly that other people could have noticed. Or the opposite - being so fidgety or restless that you have been moving around a lot more than usual: not at all 9. Thoughts that you would be better off or of hurting yourself in some way: not at all Total score: 3 Depression Screening Interpretation: Negative Depression Screening Done: Yes 13856 - PHQ-9 Billing: Yes Source: Developed by Drs. Justice Diaz, Laurel Salazar, Camden Ramírez and colleagues, with an educational nino from [employer]. Thrive Questionnaire Date Thrive assessed: 11/09/24 I am a: Patient What is your living situation today?: I have a steady place to live Within the past 12 months, did the food you bought not last and you didn't have the money to get more?: Never true Within the past 12 months, did you worry whether your food would run out before you got money to buy more?: Never true Do you have trouble paying for medicines?: No Do you have trouble getting transportation to medical appointments?: No Do you have trouble paying your heating and electricity bill?: No Do you have trouble taking care of your child, family member or friend?: No Do you have trouble with day-to-day activities such as bathing, preparing meals, shopping, managing finances, etc.?: No Are you currently unemployed and looking for a job?: No Are you interested in more education?: No Please select the resources that you would like help with: None Currently or been in a relationship where the following occur: No concerns reported THRIVE Score: 0 AUDIT C Alcohol Use Questionnaire (AUDIT-C) 1. How often do you have a drink containing alcohol?: Monthly or less 2. How many drinks containing alcohol do you have on a typical day when you are drinking?: 1 or 2 3. How often do you have six or more drinks on one occasion?: Never Total Score: 1 Score Reviewed/Action Taken: Yes JACK-7 AMB Questionnaire JACK-7 Date JACK - 7 assessed: 11/09/24 Feeling nervous, anxious, or on edge: 1 = Several days Not being able to stop or control worryin = Several days Worrying too much about different things: 1 = Several days Trouble relaxin = Several days Being so restless that it is hard to sit still: 1 = Several days Becoming easily annoyed or irritable: 1 = Several days Feeling afraid as if something awful might happen: 0 = Not at all Total JACK-7 score (0-4 normal; 5-9 mild; 10-14 moderate; 15-21 severe): 6 Source: Developed by Drs. Justice Diaz, Laurel Salazar, Camden Ramírez and colleagues, with an educational nino from [employer]. JACK-7 Assessment Billing JACK-7 Assessment Tool: JACK-7 Assessment 29343 Physical exam (Primary Care) Vital Signs: Last Vital Signs Pulse 73 11/09/24 14:11 BP 130/80 11/09/24 14:11 Pulse Ox 98 11/09/24 14:11 BMI result Body Mass Index 30.5 Tobacco/Smoking Status: Tobacco use Status Tobacco use date assessed 11/09/24 11/09/24 14:14 Patient Tobacco Use Status Never used Tobacco 11/09/24 14:08 e-Cigarette/Vaping Use Never Used 11/09/24 14:08 PHQ-9: PHQ-9 Score PHQ-9: Total score 3 11/09/24 14:14 Depression Screening Interpretation: Negative Thrive Assessment: Date of Thrive Assessment Date Thrive assessed 11/09/24 11/09/24 14:14 Currently or been in a relationship where the following occur: No concerns reported Coding Level of Care Code Est Pt Prev Care 18-39y(33225) Diagnoses Physical exam Z00.00 Connective tissue disease M35.9 Dermatomycosis B36.9 Additional Codes JACK-7 Assessment Billing - JACK-7 Assessment Tool: JACK-7 Assessment 37407 ([id number]) PHQ-9 - 24468 - PHQ-9 Billing: Yes ([id number]) Assessment & Plan Assessment & Plan (1) Physical exam: Code(s): Z00.00 - Encounter for general adult medical examination without abnormal findings Category: Medical (2) Connective tissue disease: Code(s): M35.9 - Systemic involvement of connective tissue, unspecified Category: Medical (3) Dermatomycosis: Code(s): B36.9 - Superficial mycosis, unspecified Category: Medical Plan: .. Plan .. Orders: Orders TSH reflex Free T4 Today Z00.00 - Encounter for general adult medical examination without abnormal findings Complete Blood Count Auto Diff Today Z00.00 - Encounter for general adult medical examination without abnormal findings Comprehensive [place]. Panel Fast Today Z00.00 - Encounter for general adult medical examination without abnormal findings UA CC w/rflx Micro + Cult Today Z00.00 - Encounter for general adult medical examination without abnormal findings Lipid Panel Today Z00.00 - Encounter for general adult medical examination without abnormal findings CA echo transthoracic complete Today B36.9 - Superficial mycosis, unspecified, M35.9 - Systemic involvement of connective tissue, unspecified
[2024-11-09 14:11] VITALS: BP 130/80; PULSE 73; O2SAT 98; BMI 30.5
--- OUTSIDE RECORDS SUMMARY | 2024-11-09 16:30 | XMS_ITS | Clinical Summary ---
Author Organization [facility] Address [address] [place] [address] Care Team Providers Care Railway Track Plant Operator Name Role Phone Ayan Toro Primary Care Provider Allergies No known active allergies Medications albuterol (PROAIR HFA,VENTOLIN HFA) 90 mcg inhaler PLEASE SEE ATTACHED FOR DETAILED DIRECTIONS Active mycophenolate (CELLCEPT) 500 mg tablet Take 1,500 mg by mouth. 4 Active betamethasone dipropionate 0.05 % lotion SMARTSIG:Topic al Daily PRN 3 Active calcium carbonate-vitamin D3 (Caltrate with Vitamin D3) 600 mg-20 mcg (800 unit) tablet Take 1 tablet by mouth. 3 Active clobetasoL (TEMOVATE) 0.05% cream PLEASE SEE ATTACHED FOR DETAILED DIRECTIONS 3 Active Xeljanz 5 mg tablet Take 5 mg by mouth. 4 Active amLODIPine (NORVASC) 5 mg tablet SMARTSI Tablet(s) By Mouth Daily 4 Active Active Problems Problem Noted Date Diagnosed Date Leukopenia 08/14/2023 Assessment & Plan (08/14/2023 3:11 PM EST): Ms. Flanagan has had leukopenia without absolute lymphopenia. She has an excoriated rash over her anterior chest and describes systemic symptoms. According to the office note of Dr. Coronado from March 23, 2023, circulating antinuclear antibodies were not detected but there was elevated Ro antibody of unclear titer. Ms. Flanagan has been treated with prednisone, methotrexate, leflunomide, mycophenolate mofetil, pentoxifylline, and, most recently, with 2 doses of intravenous gammaglobulin. Based upon the information available to me at the time of her visit today, I am unable to make a specific diagnosis or to confirm a diagnosis of undifferentiated connective tissue disease. Typically, a longer therapeutic trial of individual immunosuppressive agents would be appropriate for treatment of a systemic autoimmune disease. However, reportedly antinuclear antibody testing was negative. In the absence of a specific diagnosis, I cannot make any therapeutic recommendation and cannot substantiate the need for continued intravenous immunoglobulin or mycophenolate mofetil therapy. However, I defer therapeutic decisions to Dr. Coronado who is treating Ms. Flanagan. Laboratory studies will be performed today to assess for circulating antinuclear antibodies by nuclear immunofluorescence, antibodies to double-stranded DNA, Sm, SOCIAL SERVICE TECHNICIAN, SSA, and SSB; C3, C4, RPR, IgG, IgM, and IgA anticardiolipin antibodies, lupus anticoagulant, and direct Stacy test. If any of these tests are positive, Ms. Flanagan should return to see me in follow- up for further evaluation. She will return to Dr. Coronado for her ongoing rheumatologic care. Pain and swelling of left wrist 08/14/2023 SS-A antibody positive 08/14/2023 Encounters Date Type Department Care Team Description 10/12/2024 1:15 PM EDT Follow-Up [facility] [address] [place] [phone] Veterinary Medicine Scientist: Brent Fleming MD Dermatomyositis (Primary Dx); Therapeutic drug monitoring; Hair loss 10/09/2024 Telephone [facility] [address] [place] [phone] Veterinary Medicine Scientist: Ydoit Styles Telephone Intake, Staff PAC Appt Request - Established 09/24/2024 9:20 AM EDT Follow-Up [facility] [address] [place] [phone] Veterinary Medicine Scientist: Steve Angela MD ILD (interstitial lung disease) (Primary Dx) 09/24/2024 8:42 AM EDT - 09/24/2024 11:59 PM EDT Hospital Encounter [facility] CT Scan [address] [place] [address] Steve Portillo MD ILD (interstitial lung disease) Discharge Disposition: Home or Self Care () 09/15/2024 9:52 AM EST - 09/15/2024 11:59 PM EST Hospital Encounter [facility] Pulmonary Function Lab [address] [place] [address] Steve Portillo MD ILD (interstitial lung disease) Discharge Disposition: Home or Self Care () from Last 3 Months Social History Tobacco Use Types Packs/Day Years Used Date Smoking Tobacco: Never Smokeless Tobacco: Never Tobacco Cessation:Counseling Given: Not Answered Alcohol Use Standard Drinks/Week Comments Not Currently 0 (1 standard drink = 0.6 oz pur e alcohol) Comments Unknown Sex and Gender Information Value Date Recorded Sex Assigned at Female 09/03/2023 11:04 AM EST Legal Sex Female 10:19 AM EDT Gender Identity Female 10/21/2023 11:44 AM EDT Sexual Orientation Straight 10/21/2023 11 :44 AM EDT Last Filed Vital Signs Vital Sign Reading Time Taken Comments Blood Pressure 115/81 09/24/2024 9:13 AM EDT Pulse 79 09/24/2024 9:13 AM EDT Temperature 37.1 ??C (98.8 ??F) 08/14/2023 1:54 PM ES T Respiratory Rate 16 09/24/2024 9:13 AM EDT Oxygen Saturation 99% 09/24/2024 9:13 AM EDT Inhaled Oxygen Concentration - - Weight 78.8 kg (173 lb 12.8 oz) 09/24/2024 9:13 AM EDT Height 160 cm (5' 3 ) 02/18/2024 12:23 PM EDT Body Mass Index 30.79 02/18/2024 12:23 PM EDT Plan of Treatment Upcoming Encounters Date Type Department Care Team (Late st Contact Info) Description 04/05/2025 1:00 PM EDT Follow-Up [facility] [address]th [address] [place] [address], Fourth [place] [phone] Veterinary Medicine Scientist: Brent Fleming MD [address] [place] [phone] 04/07/2025 10:00 AM EDT Appointment [facility] [address] [place] [phone] Steve Portillo MD [address] [place] [phone] 04/07/2025 11:40 AM EDT Follow-Up [facility] [address] [place] [phone] Veterinary Medicine Scientist: Steve Angela MD [address] [place] [phone] Health Maintenance Due Date Last Done Comments Cervical Cancer Screening 1988 HIV Screening 1988 HPV and Pap Smear 1988 Hepatitis C Screening 1988 Pap Smear 1988 Varicella Vaccines (1 of 2 - 13+ 2-dose series) 2001 Hepatitis B Vaccines (1 of 3 - 19+ 3-dose series) 2007 COVID-19 Vaccine ( - 2023-2 5 season) 2024 Alcohol/Substance Use Screening 07/15/2024 Depression Screening and Follow-Up 07/15/2024 Social Drivers of Health Annual Screening 07/15/2024 Influenza Vaccine (Season Ended) 2025 DTaP,Tdap,and Td Vaccines (3 - Td or Tdap) 04/13/2030 04/13/2020, 09/03/2018 RSV Vaccine (60+ years old and patients) (1 - 1-dose 75+ series) 2063 Pneumococcal Vaccine: Pediatric (0-5 Years) and At-Risk Patients (6-50 Years) Aged Out No longer eligible based on patient's age to complete this topic Procedures * Due to [place] state law, this organization might not be sharing negative HIV tests. Procedure Name Priority Date/Time Associated Diagnosis Comments CT CHEST INTERSTITIAL LUNG DISEASE/FIBROSIS Routine 09/24/2024 9:03 AM EDT ILD (interstitial lung disease) PULMONARY FUNCTION TEST Routine 09/15/2024 10:03 AM EST ILD (interstitial lung disease) from Last 3 Months Results * Due to [place] [employer] law, this organization might not be sharing negative HIV tests. * CT Chest Interstitial Lung Disease/Fibrosis (09/24/2024 9:03 AM EDT) Anatomical Region Laterality Modality Body Computed Tomogra phy 09/28/2024 1:48 PM EDT Impressions 09/28/2024 2:12 PM EDT 1. ??Minimal interval improvement in peribronchovascular groundglass opacities of the right lower lobe. ??Additional more central groundglass opacities of the right lower lobe are unchanged with new faint groundglass opacities of the right upper lobe. 2. ??Subtle decrease in size of a subsolid left upper lobe pulmonary nodule and left upper lobe groundglass opacity. ??No new or enlarging pulmonary nodules. 3. ??Enlarging solid lesion of the right breast containing punctate calcifications measuring up to 2.7 cm, previously 2.2 cm. ??Further characterization with ultrasound and/or mammography is recommended (Yellow-alert). A(n) Yellow actionable finding has been communicated to the ordering or responsible provider via the [employer] Findings system on 09/28/2024 2:12 PM. ??Receipt of this communication by the responsible provider will be documented in [employer] Findings upon receiving acknowledgement if applicable, Message ID [id number]. If this radiology report contains a blank impression section, it is an incomplete radiology report. ??Please contact the interpreting radiologist or applicable radiology division as soon as possible to obtain the completed interpretation. ? Workstation ID: [id number] Narrative 09/28/2024 2:12 PM EDT EXAMINATION: CT CHEST INTERSTITIAL LUNG DISEASE/FIBROSIS INDICATION: 34-year-old female with history of dermatomyositis with exercise intolerance. COMPARISON: CT ILD from 01/01/2024. ?? TECHNIQUE: Helical images were obtained from the thoracic inlet to the lung bases without intravenous contrast. Coronal and sagittal reformatted images were provided. For radiation dose control at least one of the following techniques was used in this procedure: (1) Automated exposure control (2) Adjustment of the mA and/or kV according to patient size (3) Use of iterative reconstruction technique. High-resolution CT images: Thin section Inspiration, expiration, and prone views were obtained (where possible) FINDINGS: BASE OF NECK: Included portions of the thyroid gland are normal. ??No focal nodule.. LUNGS, PLEURA, AIRWAYS: ?? Central airways are patent. ??Few small diverticuli of the upper trachea (for example series 4, image 45). ??No bronchial wall thickening or dilation. No pleural effusion, pleural thickening or pneumothorax. No focal or confluent consolidation. ??Few peribronchovascular opacities in the periphery of the right lower lobe (series 4, image 305) which have minimally improved compared to prior examination. ??Additional unchanged central ill-defined groundglass opacities of the right lower lobe (series 4, image 244) which persist on the prone imaging. Few new faint right upper lobe groundglass opacities (series 4, image 17). ??Minimal interval decrease in a subsolid 7 mm pulmonary nodule (series 4, image 177), previously 8 mm, and a ill-defined groundglass opacity of the left upper lobe (series 4, image 57). ??Additional pulmonary nodules are unchanged. ??No new pulmonary nodules. ??No evidence of air trapping on the expiratory images. MEDIASTINUM: ?? Thoracic aorta is normal in course and caliber. ??Conventional anatomy the arch vessels. ??Main pulmonary artery is normal in size. ??Heart is normal in size without pericardial effusion. ??Age appropriate appearance of the thymus gland. ??Esophagus is nondilated. ?? NODES: ? No supraclavicular, axillary, mediastinal or hilar lymphadenopathy within limitations of a noncontrast examination. UPPER ABDOMEN: ?? Diverticulosis of the partially imaged transverse colon. ??Remainder of the imaged upper abdomen is normal. BONES/SOFT TISSUES: Enlarging solid lesion of the right outer breast with few punctate calcifications measuring 2.7 x 1.8 cm (series 6, image 149), previously 2.2 x 1.6 cm. ??No focal osseous lesions. Resulting Agency Comment [id number] Procedure Note Kim Michaud MD - 09/28/2024 EXAMINATION: CT CHEST INTERSTITIAL LUNG DISEASE/FIBROSIS INDICATION: 34-year-old female with history of dermatomyositis withexercise intolerance. COMPARISON: CT ILD from 01/01/2024. TECHNIQUE: Helical images were obtained from the thoracic inlet to thelung bases without intravenous contrast. Coronal and sagittal reformattedimages were provided. For radiation dose control at least one of thefollowing techniques was used in this procedure: (1) Automated exposurecontrol (2) Adjustment of the mA and/or kV according to patient size (3)Use of iterative reconstruction technique. High-resolution CT images: Thin section Inspiration, expiration, and proneviews were obtained (where possible) FINDINGS: BASE OF NECK: Included portions of the thyroid gland are normal. No focal nodule.. LUNGS, PLEURA, AIRWAYS: Central airways are patent. Few small diverticuli of the upper trachea(for example series 4, image 45). No bronchial wall thickening ordilation. No pleural effusion, pleural thickening or pneumothorax. No focal or confluent consolidation. Few peribronchovascular opacities inthe periphery of the right lower lobe (series 4, image 305) which haveminimally improved compared to prior examination. Additional unchangedcentral ill-defined groundglass opacities of the right lower lobe (series4, image 244) which persist on the prone imaging. Few new faint rightupper lobe groundglass opacities (series 4, image 17). Minimal intervaldecrease in a subsolid 7 mm pulmonary nodule (series 4, image 177),previously 8 mm, and a ill-defined groundglass opacity of the left upperlobe (series 4, image 57). Additional pulmonary nodules are unchanged.No new pulmonary nodules. No evidence of air trapping on the expiratoryimages. MEDIASTINUM: Thoracic aorta is normal in course and caliber. Conventional anatomy thearch vessels. Main pulmonary artery is normal in size. Heart is normalin size without pericardial effusion. Age appropriate appearance of thethymus gland. Esophagus is nondilated. NODES: No supraclavicular, axillary, mediastinal or hilar lymphadenopathy withinlimitations of a noncontrast examination. UPPER ABDOMEN: Diverticulosis of the partially imaged transverse colon. Remainder of theimaged upper abdomen is normal. BONES/SOFT TISSUES: Enlarging solid lesion of the right outer breast with few punctatecalcifications measuring 2.7 x 1.8 cm (series 6, image 149), previously2.2 x 1.6 cm. No focal osseous lesions. IMPRESSION: 1. Minimal interval improvement in peribronchovascular groundglassopacities of the right lower lobe. Additional more central groundglassopacities of the right lower lobe are unchanged with new faint groundglassopacities of the right upper lobe. 2. Subtle decrease in size of a subsolid left upper lobe pulmonary noduleand left upper lobe groundglass opacity. No new or enlarging pulmonarynodules. 3. Enlarging solid lesion of the right breast containing punctatecalcifications measuring up to 2.7 cm, previously 2.2 cm. Furthercharacterization with ultrasound and/or mammography is recommended(Yellow-alert). A(n) Yellow actionable finding has been communicated to the ordering orresponsible provider via the [facility] Findings system on09/28/2024 2:12 PM. Receipt of this communication by the responsibleprovider will be documented in [facility] Findings uponreceiving acknowledgement if applicable, Message ID [id number]. If this radiology report contains a blank impression section, it is anincomplete radiology report. Please contact the interpreting radiologistor applicable radiology division as soon as possible to obtain thecompleted interpretation. Workstation ID: [id number] Steve Portillo MD IMG CT PROCEDURES Edited Re sult - Final * Pulmonary Function Test UNV; Spirometry, Lung Volumes, Diffusing Capacity; Spirometry alone (No bronchodilator); Lung volumes (Plethysmography); Diffusing capacity (DLco); ILD (09/15/2024 10:03 AM EST) FVC (L) 3.79 L [facility] FVC % Predicted 113 % [facility] FEV1 (L) 2.84 L [facility] FEV1 % Predicted 101 % [facility] FEV1/FVC Ratio 75 % [facility] TLC (L) 5.05 L [facility] TLC % Predicted 100 % [facility] 09/15/2024 10:0 3 AM EST Narrative [facility] - 09/15/2024 10:03 AM EST There is no ventilatory impairment demonstrated by spirometry and lung volumes. ??The findings are within normal limits. The individual DLco efforts meet ATS/ERS acceptability, and meet repeatability standards. Measure of uncorrected diffusing capacity (DLco) is most consistent with mildly decreased alveolar capillary membrane surface area and diffusion properties for gas exchange, as seen in diseases such as pulmonary emphysema, interstitial lung diseases, and pulmonary vascular diseases. Since the last testing on 01/01/2024, the absolute value of the FEV1 has changed by +9.2%. Since the last testing on 01/01/2024, the absolute value of the DLCO has changed by -10.4%. Since the last testing on 01/01/2024, the absolute value of the TLC has changed by +7.2%. See trend graphic and table below. us Steve Portillo MD PFT ORDERABLES Final Resul t [facility] from Last [address] [facility] Care Teams Railway Track Plant Operator Relationship Specialty Start Date End Date Aayn Toro [address] [place] [address] PCP - General 08/14/23 Delfina Amezcua M.D. [facility] Rheumatology Rheumatology 11/07/23
--- OUTSIDE RECORDS SUMMARY | 2024-11-09 16:30 | XMS_ITS | Encounter Summary ---
Author Organization [facility] Address [address] [place] [address] Care Team Providers Care Promotions Specialist Name Role Phone Ayan Toro Primary Care Provider Encounter Details Date Type Department Care Team (Late st Contact Info) Description 02/14/2024 RadarFindt Message [facility] - Actionable Findings [address] [place] [address] Mychart, Generic Provider [address] [place], [place] [id number] Initial Incidental Finding Notification re: CT Scan 01/01/24 Social History Tobacco Use Types Packs/Day Years Used Date Smoking Tobacco: Never Smokeless Tobacco: Never Alcohol Use Standard Drinks/Week Comments Not Currently 0 (1 standard drink = 0.6 oz pur e alcohol) Comments Unknown Sex and Gender Information Value Date Recorded Sex Assigned at Female 09/03/2023 11:04 AM EST Legal Sex Female 10:19 AM EDT Gender Identity Female 10/21/2023 11:44 AM EDT Sexual Orientation Straight 10/21/2023 11 :44 AM EDT documented as of this encounter Plan of Treatment Upcoming Encounters Date Type Department Care Team (Late st Contact Info) Description 04/05/2025 1:00 PM EDT Follow-Up [facility] 4th Floor [address] [facility], [place] [phone] Javascript Application Developer: Brent Fleming MD [address] [place] [phone] 04/07/2025 10:00 AM EDT Appointment [facility] Pulmonary Function Lab [address] [place] [address] Steve Portillo MD [address] [place] [phone] 04/07/2025 11:40 AM EDT Follow-Up [facility] [address] [place] [address] Javascript Application Developer: Steve Angela MD [address] [place] [phone] documented as of this encounter Visit Diagnoses Not on filedocumented in this encounter Care Teams Promotions Specialist Relationship Specialty Start Date End Date Ayan Toro [address] [place] [address] PCP - General 08/14/23 Delfina Amezcua M.D. [facility] Rheumatology Rheumatology 11/07/23 documented as of this encounter
--- OUTSIDE RECORDS SUMMARY | 2024-11-09 16:30 | XMS_ITS | Encounter Summary ---
Author Organization [facility] Address [address] [place] [address] Care Team Providers Care Outreach Associate Name Role Phone Ayan Toro Primary Care Provider Reason for Visit * Reason Onset Date Comments Actionable Finding 02/14/2024 Encounter Details Date Type Department Care Team (Late st Contact Info) Description 02/14/2024 Telephone [facility] - Actionable Findings [address] [facility] [address] [place] [address] Jeannette Chance RN Actionable Finding Social History Tobacco Use Types Packs/Day Years [...] AM EDT documented as of this encounter Miscellaneous Notes * Telephone Encounter - Jeannette Chance RN - 02/14/2024 1:34 PM EDT The Actionable Findings Team performed a chart review of radiology studies below. There may not have been a telephone call or patient contact with this encounter. Actionable finding review of CT Date of scan: 01/01/24 Location of scan: [facility] Status of incidental finding: E-fax Result; Confirmed patient active in Practice (Spoke with Elliot) Jeannette Diop RN [phone] documented in this encounter Plan of Treatment Upcoming Encounters Date Type Department Care Team (Late st Contact Info) Description 04/05/2025 1:00 PM EDT Follow-Up [facility] 4th Floor [address] [place] [address], [place] [phone] Corn Shredder: Brent Fleming MD [address] [place] [phone] 04/07/2025 10:00 AM EDT Appointment [facility] Pulmonary Function Lab [address] [place] [address] Steve Portillo MD [address] [place] [address] 04/07/2025 11:40 AM EDT Follow-Up [facility] [address] [place] [address] Corn Shredder: Steve Angela MD [address] [place] [phone] documented as of this encounter Visit Diagnoses Not on filedocumented in this encounter Care Teams Outreach Associate Relationship Specialty Start Date End Date Ayan Toro [address] [place] [address] PCP - General 08/14/23 Delfina Amezcua M.D. [facility] Rheumatology Rheumatology 11/07/23 documented as of this encounter
--- OUTSIDE RECORDS SUMMARY | 2024-11-09 16:30 | XMS_ITS | Encounter Summary ---
Author Organization [facility] Address [address] [place] [address] Care Team Providers Care Court Deputy Name Role Phone Ayan Toro Primary Care Provider [phone] Reason for Visit * Reason Onset Date Comments PAC Appt Request - Established 10/09/2024 Encounter Details Date Type Department Care Team (Late st Contact Info) Description 10/09/2024 Telephone [facility] [address]th [address] [place] [address], [place] [phone] Used Car Sales Manager: Yodit Styles Telephone Intake, Staff PAC Appt Request - Established Social History Tobacco Use Types Packs/Day Years [...] encounter Miscellaneous Notes * Telephone Encounter - Catalina Haines - 10/09/2024 2:42 PM EDT All set * Telephone Encounter - Maddie Kenny - 10/09/2024 12:12 PM EDT Pt calling to see if there is any appt for today w/ Brent Whiteside MD dx not listed soI am unable to populate at schedule [phone] best call back number documented in this encounter Plan of Treatment Upcoming Encounters Date Type Department Care Team (Late st Contact Info) Description 04/05/2025 1:00 PM EDT Follow-Up [facility] 4th Floor [address] [place] [address], [place] [phone] Used Car Sales Manager: Brent Fleming MD [address] [place] [phone] 04/07/2025 10:00 AM EDT Appointment [facility] Pulmonary Function Lab [address] [place] [address] Steve Portillo MD [address] [place] [phone] 04/07/2025 11:40 AM EDT Follow-Up [facility] [address] [place] [address] Used Car Sales Manager: Steve Angela MD [address] [place] [phone] documented as of this encounter Visit Diagnoses Not on filedocumented in this encounter Care Teams Court Deputy Relationship Specialty Start Date End Date Ayan Toro [address] [place] [address] PCP - General 08/14/23 Delfina Amezcua M.D. [facility] Rheumatology Rheumatology 11/07/23 documented as of this encounter
--- OUTSIDE RECORDS SUMMARY | 2024-11-09 16:30 | XMS_ITS | Encounter Summary ---
Author Organization [facility] Address [address] [place] [address] Care Team Providers Care Nuclear Engineering Technician Name Role Phone Ayan Toro Primary Care Provider [phone] Encounter Details Date Type Department Care Team (Late st Contact Info) Description 04/03/2024 myChart Message [facility] Speech Therapy Department [address] [place] [address] Mychart, Generic Provider [address] [place] [address] MBS Appt Social History Tobacco Use Types Packs/Day Years [...] Info) Description 04/05/2025 1:00 PM EDT Follow-Up [facility] Dermatology Clinic 4th Floor [address], [place] [phone] Humidifier Attendant: Brent Fleming MD [address] [place] [phone] 04/07/2025 10:00 AM EDT Appointment [facility] Pulmonary Function Lab [address] [place] [address] Steve Portillo MD [address] [place] [phone] 04/07/2025 11:40 AM EDT Follow-Up [facility] [address] [place] [address] Humidifier Attendant: Steve Angela MD [address] [place] [phone] documented as of this encounter Visit Diagnoses Not on filedocumented in this encounter Care Teams Nuclear Engineering Technician Relationship Specialty Start Date End Date Ayan Toro [address] [place] [address] PCP - General 08/14/23 Delfina Amezcua M.D. [facility] Rheumatology Rheumatology 11/07/23 documented as of this encounter
--- OUTSIDE RECORDS SUMMARY | 2024-11-09 16:30 | XMS_ITS | Referral Summary ---
Author Organization [facility] Address [address] [place] [address] Care Team Providers Care Eligibility Services Representative Name Role Phone Ayan Toro Primary Care Provider [phone] Encounters Date Type Department Care Team Description 10/12/2024 1:15 PM EDT Follow-Up [facility] Dermatology Clinic 4th [address] [place] [phone] Sugar Mixer: Brent Fleming MD Dermatomyositis (Primary Dx); Therapeutic drug monitoring; Hair loss 10/09/2024 Telephone [facility] Dermatology Clinic 4th Floor [address] [place] [phone] Sugar Mixer: Yodit Styles Telephone Intake, Staff PAC Appt Request - Established 09/24/2024 9:20 AM EDT Follow-Up [facility] [address] [place] [phone] Sugar Mixer: Steve Angela MD ILD (interstitial lung disease) (Primary Dx) 09/24/2024 8:42 AM EDT - 09/24/2024 11:59 PM EDT Hospital Encounter [facility] CT Scan [address] [place] [phone] Steve Portillo MD ILD (interstitial lung disease) Discharge Disposition: Home or Self Care (01) 09/15/2024 9:52 AM EST - 09/15/2024 11:59 PM EST Hospital Encounter [facility] Pulmonary Function Lab [address] [place] [address] Steve Portillo MD ILD (interstitial lung disease) Discharge Disposition: Home or Self Care () from Last 3 Months Allergies No known active allergies Medications albuterol [...] 08/14/2023 Assessment & Plan (08/14/2023 3:11 PM [facility]): Ms. Flanagan has had leukopenia without absolute [...] However, I defer therapeutic decisions to Dr. Coroando who is treating Ms. Flanagan. Laboratory studies will be performed today to assess for circulating antinuclear antibodies by nuclear immunofluorescence, antibodies to double-stranded DNA, Sm, ROOMING HOUSE OPERATOR, SSA, and SSB; C3, C4, RPR, IgG, IgM, and IgA anticardiolipin antibodies, lupus anticoagulant, and direct Stacy test. If any of these tests are positive, Ms. Flanagan should return to see me in follow- up for further evaluation. She will return to Dr. Coronado for her ongoing rheumatologic care. Pain and swelling of left wrist 08/14/2023 SS-A antibody positive 08/14/2023 Social History Tobacco Use Types Packs/Day Years [...] Info) Description 04/05/2025 1:00 PM EDT Follow-Up [facility] Dermatology Clinic 4th Floor [address] [place] [address], [place] [phone] Sugar Mixer: Brent Fleming MD [address] [place] [phone] 04/07/2025 10:00 AM EDT Appointment [facility] Pulmonary Function Lab [address] [place] [phone] Steve Portillo MD [address] [place] [phone] 04/07/2025 11:40 AM EDT Follow-Up [facility] [address] [place] [phone] Sugar Mixer: Steve Angela MD [address] [place] [phone] Procedures * Due to [place] [employer] law, this organization might not be sharing negative HIV tests. Procedure Name Priority Date/Time Associated Diagnosis Comments CT CHEST INTERSTITIAL LUNG DISEASE/FIBROSIS Routine 09/24/2024 9:03 AM EDT ILD (interstitial lung disease) PULMONARY FUNCTION TEST Routine 09/15/2024 10:03 AM EST ILD (interstitial lung disease) from Last 3 Months Results * Due to [place] [employer] law, this organization might not be sharing [...] the ordering or responsible provider via the [employer] system on 09/28/2024 2:12 PM. ??Receipt of this communication by the responsible provider will be documented in [employer] upon receiving acknowledgement if applicable, Message ID [id number]. If this radiology report contains a blank impression section, it is an incomplete radiology report. ??Please contact the interpreting radiologist or applicable radiology division as soon as possible to obtain the completed interpretation. ? Workstation ID: [id number] Narrative 09/28/2024 2:12 PM EDT EXAMINATION: CT [...] ??No focal osseous lesions. Resulting Agency Comment [id number] Procedure Note Kim Michaud MD - 09/28/2024 [...] to the ordering orresponsible provider via the [employer] system on09/28/2024 2:12 PM. Receipt of this communication by the responsibleprovider will be documented in [employer] uponreceiving acknowledgement if applicable, Message ID [id number]. If this radiology report contains a blank impression section, it is anincomplete radiology report. Please contact the interpreting radiologistor applicable radiology division as soon as possible to obtain thecompleted interpretation. Workstation ID: [id number] Steve Portillo MD IMG CT PROCEDURES Edited [...] DIAGNOSTICS LAB from Last [address] [place] [address] [place] [address] Care Teams Eligibility Services Representative Relationship Specialty Start Date End Date Ayan Toro [address] [place] [phone] PCP - General 08/14/23 Delfina Amezcua M.D. [facility] Rheumatology Rheumatology 11/07/23
== END 2024-11-09 16:15 | disposition home or self-care (01) ==
PROVIDERS: PCP Nurse Practitioner Family; Visit Provider Nurse Practitioner Family
DX: Z00.00 Encounter for general adult medical examination without abnormal findings (principal); M35.9 Systemic involvement of connective tissue, unspecified; B36.9 Superficial mycosis, unspecified

== ENCOUNTER → 2024-11-09 13:47 | Outpatient (BNVA) | payer OTHER, SELFPAY | PROVIDERS: PCP Nurse Practitioner Family; Visit Provider Nurse Practitioner Family | DX: Z00.00 Encounter for general adult medical examination without abnormal findings (principal); M35.9 Systemic involvement of connective tissue, unspecified; B36.9 Superficial mycosis, unspecified | CPT/HCPCS: 96127 ==